=== PATIENT | male | born 1970 | race Hispanic/Latino ===

== ENCOUNTER 2024-03-13 13:01 | Inpatient (IN) | payer SELFPAY ==
[~2024-03-13] VITALS: Ht 172.7 cm; Wt 75.7 kg
[2024-03-13 13:28] LABS: BASOPHILS # (AUTO) 0.1 (0.0-0.1); BASOPHILS % 1.2 % (0.0-1.0); EOSINOPHILS # (AUTO) 0.2 (0.0-0.4); EOSINOPHILS % 3.1 % (0.0-6.0); HEMATOCRIT 44.1 % (38.2-49.6); HEMOGLOBIN 14.9 g/dL (14.0-18.0); LYMPHOCYTES % 29.7 % (18.0-39.1); MEAN CORPUSCULAR HEMOGLOBIN 30.7 pg (28-32); MEAN CORPUSCULAR HGB CONC 33.8 g/dL (31-35); MEAN CORPUSCULAR VOLUME 90.9 fL (81-99); MONOCYTES # (AUTO) 0.5 (0.2-0.8); MONOCYTES % 7.1 % (4.4-11.3); NEUTROPHILS % 58.9 % (38.7-80.0); PLATELET COUNT 158 x10e3/uL (140-360); RED BLOOD COUNT 4.85 x10e6/uL (4.3-5.7); RED CELL DISTRIBUTION WIDTH 12.4 % (11.7-14.4); WHITE BLOOD COUNT 6.76 x10e3/uL (4.8-10.8)
[2024-03-13 15:01] LABS: AMPHETAMINES SCREEN,URINE NEGATIVE (NEGATIVE); BENZODIAZEPINES SCREEN,URINE NEGATIVE (NEGATIVE); CANNABINOIDS SCREEN,URINE NEGATIVE (NEGATIVE); METHADONE SCREEN, URINE NEGATIVE (NEGATIVE); OPIATES SCREEN,URINE NEGATIVE (NEGATIVE); PHENCYCLIDINE SCREEN,URINE NEGATIVE (NEGATIVE)
[2024-03-13 15:49] LABS: ALANINE AMINOTRANSFERASE 47 IU/L (0-55); ALBUMIN 4.2 g/dL (3.5-5.0); ALBUMIN/GLOBULIN RATIO 1.3 (0.8-2.0); ALKALINE PHOSPHATASE 92 IU/L (40-150); ANION GAP 14.8 mmol/L (8-16); BILIRUBIN,TOTAL 0.6 mg/dL (0.2-1.2); BLOOD UREA NITROGEN 13 mg/dL (7-26); BUN/CREATININE RATIO 14 (6-25); CALCIUM 9.6 mg/dL (8.4-10.2); CARBON DIOXIDE 24 mmol/L (22-29); CHLORIDE 101 mmol/L (98-107); CREATININE, SERUM 0.96 mg/dL (0.72-1.25); EST GLOMERULAR FILTRATION RATE 94 ML/MIN (>=60); GLUCOSE 138 mg/dL (74-118); POTASSIUM 3.8 mmol/L (3.5-5.1); SODIUM 136 mmol/L (136-145); TOTAL PROTEIN 7.5 g/dL (6.5-8.1)
[2024-03-13 16:02] LABS: TROPONIN I < 0.001 ng/mL (0-0.300)
[2024-03-13 16:44] VITALS: PULSE 50; RESP 20; O2SAT 99
[2024-03-13] MEDS ORDERED: ACETAMINOPHEN 325 MG TAB PO PRN (16:45)
[2024-03-13] MEDS ORDERED: SIMETHICONE 80 MG CHEW PO PRN (16:45)
[2024-03-13] MEDS ORDERED: MELATONIN 5 MG TABLET PO PRN (16:45)
[2024-03-13] MEDS ORDERED: DEXTROSE 50% SYRINGE 50 ML IV PRN (16:45)
[2024-03-13] MEDS ORDERED: POTASSIUM CHLORIDE 20 MEQ TAB CR PO PRN (16:45)
[2024-03-13] MEDS ORDERED: BENZONATATE 100 MG CAP PO PRN (16:45)
[2024-03-13] MEDS ORDERED: ALBUTEROL/IPRATROPIUM 3 ML NEB NEB PRN (16:45)
[2024-03-13] MEDS ORDERED: LIDOCAINE 4% PATCH TP PRN (16:45)
[2024-03-13] MEDS ORDERED: DOCUSATE SODIUM 100 MG CAP PO PRN (16:45)
[2024-03-13] MEDS ORDERED: HYDRALAZINE HCL 20 MG/ML VIAL IV PRN (16:45)
[2024-03-13] MEDS ORDERED: DIPHENHYDRAMINE HCL 25 MG CAP PO PRN (16:45)
[2024-03-13 16:47] VITALS: PULSE 50; RESP 20; O2SAT 99
[2024-03-13 17:01] VITALS: TEMP 98.1
[2024-03-13] MEDS: ENOXAPARIN SOD INJ 40 MG/0.4 ML SYR SC SCH (17:13)
[2024-03-13] MEDS ORDERED: ENOXAPARIN SOD INJ 40 MG/0.4 ML SYR SC ONE (17:15)
[2024-03-13] MEDS ORDERED: SODIUM CHLORIDE 0.9% 100 ML ONE (17:18)
[2024-03-13] MEDS ORDERED: IOPAMIDOL 370 MG/ML 100 ML INFUS..BTL INJ ONE (17:18)
[2024-03-13] MEDS ORDERED: SODIUM CHLORIDE 0.9% 1000ML 1,000 ML ONE (17:26)
[2024-03-13] MEDS ORDERED: ONDANSETRON HCL INJ 2MG/ML 2ML 2 MG/ML VIAL ONE (17:44)
[2024-03-13] MEDS: ONDANSETRON HCL INJ 2MG/ML 2ML 2 MG/ML VIAL IV PRN (17:45)
[2024-03-13] MEDS: SODIUM CHLORIDE 0.9% 1000ML 1,000 ML IV SCH (17:46)
[2024-03-13 19:02] VITALS: PULSE 50; RESP 16
[2024-03-13 20:01] LABS: TROPONIN I 0.006 ng/mL (0-0.300)
[2024-03-13 20:40] VITALS: BP 93/58; PULSE 44; RESP 16; TEMP 98.2; O2SAT 100
[2024-03-13] MEDS: ATORVASTATIN 40 MG TAB PO SCH (21:11)
[2024-03-13] MEDS ORDERED: GLIPIZIDE5 MG PO (23:05)
[2024-03-14] VITALS (7 sets, daily range): BP systolic 80–120; BP diastolic 50–74; PULSE 47–67; RESP 16–18; TEMP 97.7–98.6; O2SAT 97–100
[2024-03-14 03:18] LABS: TROPONIN I 0.001 ng/mL (0-0.300)
[2024-03-14 06:36] LABS: BASOPHILS # (AUTO) 0.1 (0.0-0.1); BASOPHILS % 1.2 % (0.0-1.0); EOSINOPHILS # (AUTO) 0.3 (0.0-0.4); EOSINOPHILS % 4.5 % (0.0-6.0); HEMATOCRIT 39.9 % (38.2-49.6); HEMOGLOBIN 13.3 g/dL (14.0-18.0); LYMPHOCYTES # (AUTO) 2.1 (1.0-3.2); LYMPHOCYTES % 36.5 % (18.0-39.1); MEAN CORPUSCULAR HEMOGLOBIN 30.7 pg (28-32); MEAN CORPUSCULAR HGB CONC 33.3 g/dL (31-35); MEAN CORPUSCULAR VOLUME 92.1 fL (81-99); MONOCYTES # (AUTO) 0.4 (0.2-0.8); MONOCYTES % 7.4 % (4.4-11.3); NEUTROPHILS # (AUTO) 2.9 (2.1-6.9); NEUTROPHILS % 50.2 % (38.7-80.0); PLATELET COUNT 151 x10e3/uL (140-360); RED BLOOD COUNT 4.33 x10e6/uL (4.3-5.7); RED CELL DISTRIBUTION WIDTH 12.6 % (11.7-14.4); WHITE BLOOD COUNT 5.84 x10e3/uL (4.8-10.8)
[2024-03-14 07:11] LABS: CALCIUM 10.3 mg/dL (8.4-10.2); CREATININE, SERUM 0.84 mg/dL (0.72-1.25)
[2024-03-14 07:14] LABS: TROPONIN I 0.004 ng/mL (0-0.300)
[2024-03-14 07:28] LABS: CHOL/HDL RATIO 2.6 (3.9-4.7)
[2024-03-14] MEDS ORDERED: SODIUM CHLORIDE 0.9% IV ONE (08:00)
[2024-03-14] MEDS ORDERED: SODIUM CHLORIDE 0.9% 1000ML 1,000 ML IV SCH (08:15)
[2024-03-14] MEDS: ASPIRIN 81 MG ENTERIC COATED PO SCH (10:22)
[2024-03-14] MEDS: PANTOPRAZOLE SOD 40 MG TABEC PO SCH (10:22)
[2024-03-14 10:23] LABS: POTASSIUM 3.5 mmol/L (3.5-5.1)
[2024-03-14 16:36] LABS: ANION GAP 18.5 mmol/L (8-16)
[2024-03-15] VITALS (7 sets, daily range): BP systolic 87–114; BP diastolic 54–75; PULSE 42–63; RESP 17–18; TEMP 97.8–98.6; O2SAT 97–100
[2024-03-15 06:25] LABS: HEMOGLOBIN 13.9 g/dL (14.0-18.0); RED BLOOD COUNT 4.51 x10e6/uL (4.3-5.7); WHITE BLOOD COUNT 5.94 x10e3/uL (4.8-10.8)
[2024-03-15 06:26] LABS: BASOPHILS # (AUTO) 0.1 (0.0-0.1); BASOPHILS % 1.7 % (0.0-1.0); EOSINOPHILS # (AUTO) 0.3 (0.0-0.4); EOSINOPHILS % 5.1 % (0.0-6.0); HEMATOCRIT 41.8 % (38.2-49.6); LYMPHOCYTES # (AUTO) 2.4 (1.0-3.2); LYMPHOCYTES % 40.2 % (18.0-39.1); MEAN CORPUSCULAR HEMOGLOBIN 30.8 pg (28-32); MEAN CORPUSCULAR HGB CONC 33.3 g/dL (31-35); MEAN CORPUSCULAR VOLUME 92.7 fL (81-99); MONOCYTES # (AUTO) 0.5 (0.2-0.8); MONOCYTES % 8.9 % (4.4-11.3); NEUTROPHILS # (AUTO) 2.6 (2.1-6.9); NEUTROPHILS % 43.9 % (38.7-80.0); PLATELET COUNT 159 x10e3/uL (140-360); RED CELL DISTRIBUTION WIDTH 12.4 % (11.7-14.4)
[2024-03-15 06:51] LABS: ANION GAP 10.9 mmol/L (8-16); CALCIUM 8.7 mg/dL (8.4-10.2); CREATININE, SERUM 0.86 mg/dL (0.72-1.25); POTASSIUM 3.9 mmol/L (3.5-5.1)
[2024-03-15] MEDS: ASPIRIN 81 MG CHEW TAB PO ONE (08:06)
[2024-03-15] MEDS ORDERED: SODIUM CHLORIDE 0.9% 1000ML 1,000 ML IV SCH (08:15)
[2024-03-15] MEDS: LIDOCAINE HCL 2% LOCAL 20 ML VIAL ONE (17:03)
[2024-03-15] MEDS: SODIUM CHLORIDE 0.9% 500ML 500 ML ONE (17:03)
[2024-03-15] MEDS: Vancomycin IV 1 GM VIAL ONE (17:03)
[2024-03-15] MEDS: MIDAZOLAM HCL 2 MG/2 ML VIAL ONE (17:03)
[2024-03-15] MEDS: GENTAMICIN SULFATE 40 MG/ML 2 ML VIAL ONE (17:03)
[2024-03-15] MEDS: FENTANYL CITRATE/PF 100MCG/2 ML INJ ONE (17:03)
[2024-03-15] MEDS: SODIUM CHLORIDE 0.9% 250ML 250 ML ONE (17:04)
[2024-03-15] MEDS: SODIUM CHLORIDE 0.9% 1000ML 2,000 ML ONE (17:04)
[2024-03-15] MEDS: IOPAMIDOL 610MG/1ML 300 MG/ML VIAL IV ONE (17:04)
[2024-03-15 17:11] LABS: INR 0.95; PROTHROMBIN TIME 13.4 seconds (11.9-14.5)
[2024-03-15] MEDS: DOXYCYCLINE HYCLATE TABLET 100 MG TAB PO SCH (17:11)
[2024-03-15 17:12] LABS: PARTIAL THROMBOPLASTIN TIME 27.2 seconds (23.8-35.5)
[2024-03-16] VITALS (8 sets, daily range): BP systolic 91–105; BP diastolic 64–69; PULSE 58–66; RESP 17–18; TEMP 97.5–98.4; O2SAT 98–100
[2024-03-16] MEDS: GLIPIZIDE 5 MG TAB PO SCH (09:34)
[2024-03-16] MEDS: MIDODRINE HCL 5 MG TABLET PO SCH (16:54)
[2024-03-16] MEDS ORDERED: ONDANSETRON HCL 4 MG ORAL DISINTEGRATING TAB PO PRN (18:00)
== END 2024-03-16 18:15 | disposition home or self-care (01) | DRG 242 ==
LOC: ER 13:07 → ERHOLD 16:08 → MED/SURG2 20:43 → OBSVTOIN 03-15 16:24
PROVIDERS: ADMIT Internal Medicine; ATTEND Internal Medicine
PROC: 0JH606Z Insertion of Pacemaker, Dual Chamber into Chest Subcutaneous Tissue and Fascia, Open Approach (ICD-10-PCS; principal; 2024-03-15)
PROC: 02H63JZ Insertion of Pacemaker Lead into Right Atrium, Percutaneous Approach (ICD-10-PCS; 2024-03-15)
PROC: 02HK3JZ Insertion of Pacemaker Lead into Right Ventricle, Percutaneous Approach (ICD-10-PCS; 2024-03-15)
DX: I44.2 Atrioventricular block, complete (principal); I46.9 Cardiac arrest, cause unspecified; R00.1 Bradycardia, unspecified; I45.2 Bifascicular block; I95.89 Other hypotension; E11.9 Type 2 diabetes mellitus without complications; R55 Syncope and collapse; R07.89 Other chest pain; Z91.81 History of falling; Z79.84 Long term (current) use of oral hypoglycemic drugs
CPT/HCPCS: 33208; 36415; 70450; 70496; 70498; 70551; 71045; 71275; 80048; 80053; 80061; 80307; 82533; 82550; 83036; 83735; 83880; 84443; 84484; 85025; 85610; 85730; 93005; 93306; 94799; 99152; 99153; 99284; C1769; C1785; C1898; G0378; J1580; J1650; J2001; J2250; J2405; J7030; J7040; J7050; Q9967; U0002